=== PATIENT | male | born 1960 | race Hispanic/Latino ===

== ENCOUNTER 2017-02-17 11:50 | Day surgery (SDC) | payer OTHER ==
--- NOTE | 2017-02-17 13:20 | Anesthesia Day of Surgery ---
Anesthesia Day of Surgery - Day of Surgery Patient Examined: Yes Patient H&P Reviewed: Yes Patient is NPO: Yes
--- NOTE | 2017-02-17 13:20 | Anesthesia Consultation ---
Anesthesia Consult and Med Hx Date of service: 02/17/17 - Airway Anesthetic Teeth Evaluation: Good ROM Head & Neck: Adequate Mental/Hyoid Distance: Adequate Mallampati Class: Class II Intubation Access Assessment: Probably Good - Pulmonary Exam CTA: Yes - Cardiac Exam Cardiac Exam: RRR - Pre-Operative Health Status ASA Pre-Surgery Classification: ASA3 Proposed Anesthetic Plan: General - Pulmonary Hx Smoking: Yes (STOPPED X 20 YRS , 2PPD X 15 YRS) Hx Sleep Apnea: Yes (DX SLEEP APNEA WITH CPAP USE) - Cardiovascular System Hx Hypertension: Yes - Central Nervous System Hx Seizures: No CVA: No - Gastrointestinal Hx Gastroesophageal Reflux Disease: Yes - Endocrine Hx Non-Insulin Dependent Diabetes: Yes - Hematic Hx Anemia: Yes (NOT RECENT) - Other Systems Hx Cancer: No Hx Obesity: Yes
[2017-02-17] MEDS ORDERED: ZOFRAN IV PRN (13:21)
[2017-02-17] MEDS ORDERED: ANCEF/STERILE WATER 2 GM/20 ML IV NR (13:33)
[2017-02-17] MEDS ORDERED: VERSED IV NR (14:00)
[2017-02-17] MEDS ORDERED: PEPCID IV NR (14:00)
[2017-02-17] MEDS ORDERED: NACL 0.9% 1000 ML 1,000 ML IV SCH (14:00)
[2017-02-17] MEDS ORDERED: DIPRIVAN 10 MG/ML IV ONE (14:32)
[2017-02-17] MEDS ORDERED: XYLOCAINE MPF 2% ONE ×2 (14:32→15:11)
[2017-02-17] MEDS ORDERED: DILAUDID ONE (14:32)
[2017-02-17] MEDS ORDERED: ANCEF ONE ×2 (14:35)
[2017-02-17] MEDS ORDERED: DECADRON ONE (14:39)
[2017-02-17] MEDS ORDERED: ZOFRAN ONE (14:39)
[2017-02-17] MEDS ORDERED: MARCAINE-EPI 0.25%-1:200,000 IJ ONE (14:40)
[2017-02-17] MEDS ORDERED: XYLOCAINE 2% INFILTRATI ONE (14:40)
[2017-02-17] MEDS ORDERED: ADRENALIN IV ONE (14:48)
--- NOTE | 2017-02-17 15:11 | Short Stay Summary ---
Short Stay Documentation Date of service: 02/17/17 Narrative H&P: 56 yo male with persistent progressively worsening right knee pain with mechanical symptoms. The knee markedly limits day to day activity and has failed to improve with nonoperative treatment. MRI positive for a medial mensicus tear. The patient's MRI finding and diagnosis discussed at length. Treatment alternatives discussed surgical nonsurgical including risks and benefits of both. The patient understands all questions answered. The patient wishes to proceed with surgery at this time. - History Principal diagnosis: persistent right knee pain, medial meniscus tear H&P: obtained from office Past Medical History: No medical history Past Surgical History: No surgical history Social history: no significant social history - Allergies and Medications Current Medications: Allergies No Known Allergies Allergy (Verified 02/12/17 15:08) Home Medications Medication Instructions Recorded Confirmed Last Taken Type Allopurinol [Zyloprim] 300 mg PO QDAY 02/12/17 02/17/17 02/16/17 History Aspirin [Adult Low Dose Aspirin EC] 81 mg PO DAILY 02/12/17 02/17/17 02/10/17 History AtorvaSTATin [Lipitor] 40 mg PO DAILY 02/12/17 02/17/17 02/16/17 History Esomeprazole Magnesium [NexIUM] 40 mg PO QDAY 02/12/17 02/17/17 02/17/17 History Fenofibrate [Lofibra] 160 mg PO QDAY 02/12/17 02/17/17 02/16/17 History Metformin HCl [Glucophage] 1,000 mg PO BID 02/12/17 02/17/17 02/15/17 History sulfaSALAzine [Azulfidine] 1,000 mg PO BID 02/12/17 02/17/17 02/10/17 History Active Medications Cefazolin Sodium (Ancef/Sterile Water 2 Gm/20 Ml) 2 gm IV PREOP NR Stop: 02/17/17 23:59 Famotidine (Pepcid) 20 mg IV PREOP NR Stop: 02/17/17 23:01 Last Admin: 02/17/17 13:43 Dose: 20 mg Hydromorphone HCl (Dilaudid) 0.5 mg IV Q10MIN PRN PRN Reason: Pain , Severe (7-10) Stop: 02/20/17 13:22 Sodium Chloride (Nacl 0.9% 1000 Ml) 1,000 mls @ 75 mls/hr IV DIRECT JOVAN Last Admin: 02/17/17 13:40 Dose: 75 mls/hr Midazolam HCl (Versed) 2 mg IV PREOP NR Stop: 02/17/17 23:01 Last Admin: 02/17/17 13:43 Dose: 2 mg Ondansetron HCl (Zofran) 4 mg IV ONCE PRN PRN Reason: Nausea And Vomiting Stop: 02/17/17 23:00 - Physical exam General appearance: no acute distress Integumentary: no rash, no growths, no abnormal pigmentation HEENT: Atraumatic Lungs: Normal air movement Breasts: deferred Heart: Regular rate Gastrointestinal: normal Male Genitourinary: deferred Rectal Exam: deferred Extremities: no ischemia, pulses intact, pulses symmetrical, No edema, normal temperature, normal color, Full ROM Neurological: Normal gait, Normal speech, Strength at 5/5 X4 ext, Normal tone, Sensation intact, Cranial nerves 3-12 NL, Reflexes 2+ - Brief post op/procedure progress note Date of procedure: 02/17/17 Pre-op diagnosis: persistent right knee pain, medial meniscus tear Post-op diagnosis: same Procedure: right knee arthroscopy partial medial meniscectomy Anesthesia: GETA Findings: as above Estimated blood loss: minimal Pathology: none Condition: stable - Hospital course Hospital course: no perioperative complications - Disposition Condition at discharge: Good Disposition: DC-01 TO HOME OR SELFCARE Short Stay Discharge Plan Follow up with: MANSI WEEKS MD [Primary Care Provider] - 7 Days
--- NOTE | 2017-02-17 15:41 | Post Anesthesia Evaluation ---
- Post Anesthesia Evaluation Patient Participated: Yes Airway Patent: Yes Stable Respiratory Function: Yes Nausea/Vomiting: No Temp > 96.8F: Yes Pain Manageable: Yes Adequeate Hydration: Yes Anesthesia Complications: No Block Receding Appropriately: Not Applicable Patient on Ventilator: No
[2017-02-17] MEDS: DILAUDID IV PRN ×4 (15:42→16:44)
[2017-02-17] MEDS ORDERED: APRESOLINE ONE (15:46)
[2017-02-17 15:53] VITALS: BP 165/97
[2017-02-17] MEDS ORDERED: NORCO 5/325 ONE (16:50)
[2017-02-17] MEDS ORDERED: NORCO 5/325 PO PRN (16:52)
--- NOTE | 2017-02-18 00:24 | Operative Report ---
PREOPERATIVE DIAGNOSES: Persistent right knee pain, medial meniscus tear. POSTOPERATIVE DIAGNOSES: Persistent right knee pain, large complex tear located within the posterior horn of the medial meniscus, grade 1 articular cartilage loss central aspect of the medial femoral condyle in the weightbearing portion measuring approximately 6 x 6 mm in circumference and mild grade 1-2 articular cartilage loss of central aspect of patella and trochlea. OPERATIVE PROCEDURE: Right knee arthroscopy, partial medial meniscectomy, removal of small cartilaginous loose bodies. SURGEON: Estevan Lira M.D. CONTENT STRATEGIST: Dai Albright, certified executive chef. ANESTHESIA: General. PREOPERATIVE ANTIBIOTICS: Ancef 2 grams IV within 1 hour of skin incision. DVT PROPHYLAXIS: Open toe thigh compression stockings and SCD pumps to the nonoperative left lower extremity. BLOOD LOSS: Minimal. OPERATIVE SPECIMENS: None. OPERATIVE COMPLICATIONS: None. OPERATIVE HISTORY AND PHYSICAL: This is a 56-year-old male who has had persistent progressively worsening right knee pain with mechanical symptoms, which has failed to improve despite extensive nonoperative treatment. MRI scan was performed, which was positive for a large complex tear located within the posterior horn of the medial meniscus. The patient's MRI findings and diagnosis were discussed at length and to make sure the patient understood that diagnosis, all questions were answered. We then discussed treatment alternatives of surgical and nonsurgical, including risks and benefits of both and after a long lengthy discussion, the patient opted to proceed with operative intervention. This will entail a right knee arthroscopy, partial medial meniscectomy and surgery as indicated. The risks of which were discussed to include, but not exclusive of infection, blood loss, nerve damage, loss of range of motion, persistent pain and the patient understood, all of his questions answered, he wished to proceed with operative intervention. OPERATIVE PROCEDURE: The patient was seen in the preoperative davila room area, at which point informed consent was reviewed and appropriate right lower extremity was identified and then marked. The patient was then brought back to the Operating Room and placed supine on a standard operating room table at which point general anesthesia was administered and endotracheal tube inserted. After confirmation of adequate general anesthesia and checking appropriate placement of the endotracheal tube, we then made sure that all bony prominences were well padded. There were no wrinkles in the compression stockings on the left lower extremity and SCD pumps were applied to the left lower extremity. The right lower extremity was then examined under anesthesia. The patient was seemed to have full range of motion. There was no evidence of instability with a negative Zacarias, negative anterior drawer, negative posterior drawer. No varus or valgus instability at zero as well as 30 degrees of flexion. No recurvatum or excessive external rotation. The arms were then secured in neutral position at the patient's side with the aid of armboard. The hip was secured in a nice neutral position as well. The right lower extremity was then prepped and draped in usual sterile fashion. After prepping and draping, a time-out was called and appropriate right lower extremity was identified, which again had been marked in the preoperative holding room area. We began our procedure by first infiltrating the knee with 30 mL of 0.25% Marcaine with epinephrine and 30 mL of 2% lidocaine without epinephrine, which the patient tolerated well. There were no complications. Following this, we began the procedure by first making a standard anterolateral portal with a #15 blade. Once the portal was established, a cannula with a blunt trocar was inserted into the intra-articular aspect of the knee joint. This went without difficulty or damage to articular cartilage. Once in place, the arthroscopic camera was immediately placed in the medial compartment. We established anteromedial portal by first inserting an 18 gauge spinal needle under arthroscopic visualization. Once confirmed to be appropriately placed superior to the medial meniscus in an appropriate position, a #15 blade was then used to establish anteromedial portal. Once the portals were established, a blunt trocar was inserted via the portal site. Following the arthroscopic probe, we began our diagnostic arthroscopy in the medial compartment. The patient seemed to have a large complex tear located within the posterior horn of the meniscus. This was irreparable, and we performed a partial medial meniscectomy in standard fashion using a series of basket punches and a 4.0 meniscal shaver ____ to a nice, smooth, stable, healthy remaining border ____ removing the white-white as well as white-red zones. There was a grade 2 articular cartilage loss of the central aspect of the medial femoral condyle near the weightbearing portion measured approximately 6 x 6 mm of circumference, especially anterior horn of the meniscus noted to be intact and stable when probed. Inspection of the notch showed the ACL and PCL to be intact and stable on probe. Inspection of lateral compartment showed to be normal articular cartilage of the lateral femoral condyle and lateral tibial plateau. There were no tears in the anterior or posterior horn of the lateral meniscus. Inspection of the medial and lateral gutters showed these to be free and clear of all loose bodies. Inspection of patellofemoral joint showed to be mild grade 1 articular cartilage of the central aspect of patella and trochlea with normal patellofemoral tracking. Inspection of suprapatellar pouch showed to be no loose bodies present. Arthroscopic camera was then placed in the posterior aspect of the knee adjacent to the cruciate ligament. Once the posterior peritoneum, we saw there were no loose bodies present. There were no root tears of the menisci. Following this, the arthroscopic camera was removed from the posterior aspect of the knee. The arthroscopic pump was turned off making sure there was adequate hemostasis. Once that was confirmed, the extraneous fluid was suctioned from the knee using arthroscopic cannula. Following this, all the arthroscopic instrumentation was removed. The 2 portal sites were closed with 3-0 nylon in simple fashion. Adaptic, 4 x 4, ABD, open toe thigh compression stocking was applied. The patient then awakened from general anesthesia without complications, taken to Recovery Room in stable condition. Standard postoperative orders were written. JOB# [id number] RADHA/LAURA
== END 2017-02-17 17:52 | disposition home or self-care (01) ==
LOC: OR 11:50
PROVIDERS: ATTEND Orthopaedic Surgery
DX: S83.231A Complex tear of medial meniscus, current injury, right knee, initial encounter (principal); M23.41 Loose body in knee, right knee; M94.8X6 Other specified disorders of cartilage, lower leg; G47.30 Sleep apnea, unspecified; E78.00 Pure hypercholesterolemia, unspecified; I10 Essential (primary) hypertension; K21.9 Gastro-esophageal reflux disease without esophagitis; D64.9 Anemia, unspecified; E11.9 Type 2 diabetes mellitus without complications; E66.9 Obesity, unspecified; Z68.39 Body mass index [BMI] 39.0-39.9, adult; Z87.891 Personal history of nicotine dependence; Z79.82 Long term (current) use of aspirin; Z79.84 Long term (current) use of oral hypoglycemic drugs; Z79.899 Other long term (current) drug therapy; X58.XXXA Exposure to other specified factors, initial encounter
CPT/HCPCS: 29881; 82962; J0171; J0360; J0690; J1100; J1170; J2250; J2405; J2704; J7030